=== PATIENT | male | born 1980 | race Caucasian/White ===

== ENCOUNTER 2023-12-28 14:03 | Emergency (ER) | payer OTHER ==
[2023-12-28 14:10] VITALS: BP 140/90; PULSE 96; RESP 18; TEMP 98.9
[2023-12-28] MEDS ORDERED: ACETAMINOPHEN 500 MG TABLET (FP) ONE (14:52)
[2023-12-28] MEDS: ACETAMINOPHEN 500 MG TABLET (FP) PO ONE (14:54)
== END 2023-12-28 15:59 | disposition home or self-care (01) ==
LOC: FER 14:03
DX: R50.9 Fever, unspecified (principal); M79.10 Myalgia, unspecified site; R51.9 Headache, unspecified; Z20.822 Contact with and (suspected) exposure to COVID-19
CPT/HCPCS: 0241U-QW; 71046-TC-FY; 81003; 87086; 99284-25